=== PATIENT | male | born 1980 | race Caucasian/White ===

== ENCOUNTER 2016-05-27 23:00 | Emergency (ER) | payer MEDICAID, OTHER ==
[~2016-05-27] VITALS: Ht 175.3 cm; Wt 75.0 kg
[2016-05-27 23:02] VITALS: BP 130/76; PULSE 89; RESP 16; O2SAT 100
--- NOTE | 2016-05-27 23:24 | ED.REPORT ---
HPI-Extremity Problem Upper Date of Service May 27, 2016 ED Provider: Dr. Alves Pt is a 36 y/o male presenting to the ED due to right hand injury which occurred 2 days ago. He c/o right hand pain and swelling. The patient was working a paul job and the come along snapped back and hit his right hand. He denies fever, chills, rash, numbness, weakness of the hand or fingers. Nursing Notes Stated Complaint: RT HAND SWELLING/PAIN Chief Complaint: Extremity Trauma Nursing Notes Reviewed: Yes Allergies: Coded Allergies: No Known Allergies (Unverified , 05/27/16) General Time Seen by MD: 23:24 Chief Complaint Hand injury right Hx Obtained From: Patient Arrived By: Walk-in Caused by: Blunt injury Location: : Hand right Quality: Painful Severity: Current: Moderate Severity: Maximum: Moderate Similar Sx Previous: No Past Medical History Past Medical History None reported Past Surgical History None reported Smoking History Unknown if Ever Smoker Ambulatory Status Independent Review of Systems Constitutional: Denies: Chills, Fever Musculoskeletal: Reports: Extremity pain, Extremity swelling Skin: Denies Rash Neurologic: Denies: Numbness, Weakness Complete sys rev & neg: except as marked. Physical Exam Initial Vital Signs Vital Signs (First) Date Time Temp Pulse Resp B/P Pulse Ox O2 Delivery O2 Flow Rate FiO2 05/27/16 23:02 36.6 89 16 130/76 100 Initial VS: Reviewed, Vital signs normal Head / Eyes: Atraumatic, Normocephalic, PERRL ENT: Mucous membranes moist, Conjunctiva normal, No scleral icterus Neck: Supple, Full range of motion Respiratory: No respiratory distress Cardiovascular: Intact distal pulses Abdomen / GI: Soft, No distention Skin: Warm, Dry, No cyanosis Neurologic: Alert, Oriented, Nonfocal Psychiatric: Mood/affect normal, Behavior normal, Normal thought content General/Constitutional: Awake, Alert, No acute distress, Cooperative, Not toxic appearing Wrist / Hand: No deformity, Neurologic intact, Vascular intact, No ligamentous injury, Tendon function NL, No compartment syndrome, No clubbing/cyanosis R hand: Swollen contused hand. Abrasions on knuckles of indeterminate age Swollen across MCPs with a hematoma on the dorsum of hand Able to extend and flex all fingers. Interpretation & Diagnostics X-Ray Interpretation Study Performed: 3 view X-Ray Ordered: Hand right Interpretation / Wet Read by: Wet read ED physician Interpretation: Normal exam, No fracture/dislocation Re-Eval/Medical Decision Med Decision/Clinical Course 36-year-old injured his hand three days ago when a come along snapped on his truck and the cable whip back and hit him across the dorsal hand. He remains swollen blue tender. He is no numbness or tingling. X-ray exam shows no evident fracture. He is placed in a removable Palmar splint, instructed to elevate as much as possible, is discharged in stable condition. Declines pain medicine. Re-Evaluation/Progress : Time of Eval: 23:33 Re-Evaluation/Progress Note: Pt rechecked. Discussed negative imaging results. Informed pt of plan for treatment. Pt understands and agrees with plan for treatment. F/U instructions and RTER warnings given. All questions addressed. Counseled Regarding: Diagnosis, Need for follow-up, When/why to return to ED Discharge & Departure Impression: Primary Impression: Injury of right hand Encounter type: initial encounter Qualified Code: S69.91XA - Unspecified injury of right wrist, hand and finger(s), initial encounter Additional Impression: Contusion of hand Disposition: Home Discharge Condition All VS Reviewed: Yes Condition: Stable Patient Instructions: Splint Care (ED) Additional Instructions: Elevate as much as possible. Warm soaks three or four times a day can help to move out some of that edema. Splints full-time for 2-3 days and avoid moving the hand. You can remove the splint to wash, but put it back on afterwards, and continue to wear it until the hand is considerably less sore and swollen. Referrals: [facility] Scribe Attestation Portions of this note were transcribed by Yang Chong. I, Dr. Alves personally performed the history, physical exam and medical decision-making; I reviewed and confirmed the accuracy of the information in the transcribed note. Signed by Molly Weiss, 05/27/16 - [id number] Rafa Alves MD May 27, 2016 23:24 YANG CHONG May 27, 2016 23:35
--- NOTE | 2016-05-28 09:15 | DRSVH ---
PROCEDURE: X-RAY RIGHT HAND, MINIMUM THREE VIEWS ([id number]) INDICATIONS: pain edema s/p hit with heavy tool TECHNIQUE: 3 views of the hand(s) acquired. COMPARISON: None. FINDINGS: Bones: No fractures or dislocations. Carpal bones are normally aligned. No suspicious bony lesions . Soft tissues: No suspicious soft tissue calcifications. Small kevin of metallic radiodensity seen w ithin the soft tissues adjacent to the base of the fifth metacarpal bone along the ulnar surface. Mi ld dorsal soft tissue swelling. IMPRESSION: 1. No displaced fracture seen. If there is continued pain, followup exam or additional imaging such as MRI or CT could be performed for further assessment. 2. Metallic soft tissue foreign body. Dictated by: Ryan Hollis [facility] Interpreted: Gisel Mathew MD on 05/28/2016 at 9:13 Transcribed by: RIGO on 05/28/2016 at 9:14 Approved by: Gisel Mathew MD, PhD on 05/28/2016 at 11:47
== END 2016-05-28 00:02 | disposition home or self-care (01) ==
LOC: SED 23:00
DX: S60.221A Contusion of right hand, initial encounter (principal); W22.8XXA Striking against or struck by other objects, initial encounter; Y92.812 Truck as the place of occurrence of the external cause; Y93.89 Activity, other specified; Y99.0 Civilian activity done for income or pay